=== PATIENT | female | born 1975 | race Caucasian/White ===

== ENCOUNTER 2018-10-29 13:00 | Emergency (ER) | payer MEDICAID ==
[2018-10-29 13:25] VITALS: BP 124/79
--- NOTE | 2018-10-29 15:15 | ER Document Report ---
HPI - HPI Patient complains to provider of: med refill Time Seen by Provider: 10/29/18 15:11 Onset: This morning Onset/Duration: Gradual Pain Level: Denies Context: Patient states that she has a history of anxiety and has run out of her Lexapro. Patient states she will run out of her Seroquel in a few days time. Patient states that she relocated here last month after her told her that he did not want to be anymore. Patient states that she had to move here with short notice and has not been able to get her insurance transferred until recently and has not followed up with a primary doctor here locally because of the insurance issues. Patient states she does have an appointment with danny but the appointment is not until December. Patient complains of persistent anx iety symptoms that do cause her to pick at her skin of her hands. Patient does wear gloves to try to protect her skin and limit the picking of her skin. Patient denies any suicidal or homicidal ideation. Patient denies any recent dose changes on her medications. Patient does present with her bottles with her. Associated Symptoms: Other - Anxiety, med refill Exacerbated by: Denies Relieved by: Denies Similar symptoms previously: Yes Recently seen / treated by doctor: No - ROS ROS below otherwise negative: Yes Systems Reviewed and Negative: Yes All other systems reviewed and negative - CONSTITUTIONAL Constitutional: DENIES: Fever - NEURO Neurology: DENIES: Headache - GASTROINTESTINAL Gastrointestinal: DENIES: Nausea - REPRODUCTIVE Reproductive: DENIES: : - DERM Skin Color: Normal Skin Problems: None Past Medical History - General Information source: Patient - Social History Smoking Status: Never Smoker Frequency of alcohol use: Occasional Drug Abuse: None Occupation: None Lives with: Family Family History: Reviewed & Not Pertinent Patient has suicidal ideation: No Patient has homicidal ideation: No Renal/ Medical History: Denies: Hx Peritoneal Dialysis Psychiatric Medical History: Reports: Hx Anxiety, Hx Bipolar Disorder Past Surgical History: Reports: Hx Orthopedic Surgery - Lumbar fusion Vertical Provider Document - CONSTITUTIONAL Agree With Documented VS: Yes Exam Limitations: No Limitations General Appearance: WD/WN, No Apparent Distress - INFECTION CONTROL TRAVEL OUTSIDE OF THE [place] IN LAST 30 DAYS: No - HEENT HEENT: Atraumatic, Normocephalic - NECK Neck: Normal Inspection, Supple - RESPIRATORY Respiratory: Breath Sounds Normal, No Respiratory Distress - CARDIOVASCULAR Cardiovascular: Regular Rate, Regular Rhythm - BACK Back: Normal Inspection - MUSCULOSKELETAL/EXTREMETIES Musculoskeletal/Extremeties: MAEW - NEURO Level of Consciousness: Awake, Alert Notes: Visibly anxious with faint tremor noted to bilateral hands - DERM Integumentary: Warm, Dry Notes: Erythema from peeled skin to bilateral thumbs, no open wound Course - Re-evaluation Re-evalutation: 10/29/18 15:00 Consulted with our mental health sales team member Mario about patient presentation and any potential resources that patient can seek. Recommends having patient present to the [facility] at her soonest available chance and presenting her case to them and see if they can either get her a appointment sooner or if they can maybe give her additional refill of her medication. 10/29/18 15:[address] Martínez regarding patient presentation, agrees with plan to refill her medications at this time. - Vital Signs Vital signs: Temp Pulse Resp BP Pulse Ox 98.7 F 98 18 124/79 99 10/29/18 13:24 10/29/18 13:24 10/29/18 13:24 10/29/18 13:24 10/29/18 13:24 Discharge - Discharge Clinical Impression: Anxiety, Medication refill Condition: Stable Disposition: HOME, SELF-CARE Instructions: Anxiety ([facility]) Additional Instructions: Return immediately for any new or worsening symptoms Followup with your primary care provider, call tomorrow to make a followup appointment Follow-up the [facility] and discuss with the staff your issue with not be able to get your medication refilled and not be able to get established with a primary doctor in a timely manner. They may be able to get you a sooner appointment or refill the medications for you if you present the bottles with you. Prescriptions: Escitalopram Oxalate [Lexapro] 20 mg PO DAILY #30 tablet Quetiapine Fumarate [Seroquel] 300 mg PO DAILY #30 tablet Referrals: [facility] [place] [Provider Group] - Follow up in 3-5 days
== END 2018-10-29 15:26 | disposition home or self-care (01) ==
LOC: ER 13:00
DX: Z76.0 Encounter for issue of repeat prescription (principal); F41.9 Anxiety disorder, unspecified; F31.9 Bipolar disorder, unspecified; Z79.899 Other long term (current) drug therapy; Z63.5 Disruption of family by separation and divorce
CPT/HCPCS: 99283

== ENCOUNTER → 2018-11-09 | Outpatient (CLI) | payer MEDICAID | LOC: OD 13:40 | PROVIDERS: ATTEND Nurse Practitioner Acute Care | DX: R30.0 Dysuria (principal) | CPT/HCPCS: 87086; 87088; 87186 ==